=== PATIENT | female | born 1995 | race Hispanic/Latino ===

== ENCOUNTER 2021-02-26 15:06 | Emergency (ER) | payer OTHER, SELFPAY ==
[2021-02-26 15:17] VITALS: BP 143/100; PULSE 73; RESP 18; TEMP 37.1; O2SAT 99
--- NOTE | 2021-02-26 17:23 | ED.URI ---
HPI - URI/Sore Throat General Chief Complaint: Upper Respiratory Infection Stated Complaint: Sore throat, cough Time Seen by Provider: 02/26/21 17:15 Source: patient Mode of arrival: ambulatory History of Present Illness HPI Narrative: Elizabeth Watson is a 25 yo female whose boyfriend tested positive for Covid yesterday and she has developed a cough and headache that started today. She has no fever, pressure is elevated. Patient will be sent to [place] for Covid test Related Data Allergies Allergy/AdvReac Type Severity Reaction Status Date / Time amoxicillin Allergy Mild Unknown Verified 02/26/21 17:08 fentanyl Allergy Mild Unknown Verified 02/26/21 17:08 latex Allergy Mild Unknown Verified 02/26/21 17:08 hydrocodone Allergy Unknown Unknown Verified 02/26/21 17:08 ONDANSETRON HCL Allergy Mild Unknown Uncoded 02/26/21 17:08 Review of Systems Review of Systems: CONSTITUTIONAL: Denies fever, chills, sweats. Not feeling well, has had EYES: Denies visual changes, redness, discharge. ENT: Denies rhinorrhea, congestion, sore throat, otalgia. CARDIOVASCULAR: Denies chest pain, palpitations, edema. RESPIRATORY: Denies dyspnea, wheezing, has cough GASTROINTESTINAL: Denies abdominal pain, nausea, vomiting, diarrhea. GENITOURINARY: Denies dysuria, hematuria, abnormal discharge SKIN: Denies rash or itching. NEUROLOGIC: Denies numbness, or focal weakness. PSYCHIATRIC: Denies anxiety or depression. PMFSH Past Medical History Medical History No acute medical problems Social History Social History (Updated 02/26/21 @ 17:25 by Yissel Faust CNP) Smoking status: Never smoker Alcohol intake: current Comments At time of signature, I agree with nursing past medical, surgical, social and family history. There is no relevant family history pertinent to the presenting complaint. Blood pressure elevated at this visit due to illness Exam Narrative: GENERAL: This is a well-nourished, well-developed patient, in mild distress. HEAD: normocephalic, atraumatic. EYES: Sclera clear/white. Vision is grossly intact. EARS: External ears normal, auditory canals clear and without drainage, TMs normal without perforation. Hearing grossly intact. NOSE: External nose normal without nasal discharge, nares without redness, no rhinorrhea. THROAT: Mucous membranes moist, posterior pharynx erythema NECK: Neck supple, CARDIOVASCULAR: Regular rate and rhythm without murmurs, gallops, or rubs. RESPIRATORY: Clear to auscultation. Breath sounds equal bilaterally. No wheezes, rales, or rhonchi. GASTROINTESTINAL: Abdomen soft, non-tender, SKIN: warm, intact with no suspicious lesions or rash, good texture and turgor. NEURO: awake, alert, and oriented to person, place and time. There were no obvious focal neurologic abnormalities. Steady gait EXTREMITIES: Normal range of motion. BACK: Nontender without deformity Course Course Emergency Course: Patient comes with symptoms of cough and headache after her boyfriend was Covid positive yesterday At the entrance in for PCR Started on Tessalon Perles and Zyrtec, take ibuprofen for Tylenol for headache Vital Signs Vital signs: Vital Signs Temperature 98.8 F 02/26/21 15:17 Pulse Rate 73 02/26/21 15:17 Respiratory Rate 18 02/26/21 15:17 Blood Pressure 143/100 H 02/26/21 15:17 Pulse Oximetry 99 02/26/21 15:17 Temperature 98.8 F 02/26/21 15:17 Pulse Rate 73 02/26/21 15:17 Respiratory Rate 18 02/26/21 15:17 Blood Pressure 143/100 H 02/26/21 15:17 Pulse Oximetry 99 02/26/21 15:17 MDM - URI/Sore Throat Differential Diagnosis Differential diagnosis: Likely upper respiratory infection, viral infection, influenza, pharyngitis and other Critical Care Time Critical Care Time Critical Care Time: No Discharge Plan Discharge Clinical Impression: Suspected 2019-nCoV infection Upper respiratory infection Qualif
== END 2021-02-26 17:35 | disposition home or self-care (01) ==
PROVIDERS: Emergency Provider Nurse Practitioner
DX: J06.9 Acute upper respiratory infection, unspecified (principal); Z20.822 Contact with and (suspected) exposure to COVID-19
CPT/HCPCS: 99213; G0463